=== PATIENT | male | born 1970 | race Caucasian/White ===

== ENCOUNTER 2022-01-06 07:31 | Emergency (ER) | payer OTHER, SELFPAY ==
--- NOTE | ~2022-01-06 | CT_ITS ---
EXAMINATION: CT abdomen pelvis w con INDICATION: Right flank pain TECHNIQUE: Computed tomographic images of the abdomen and pelvis were obtained after the administrati on of 100 cc of Omnipaque 350 intravenous contrast. The dose-length product (DLP) was 608.71 mGy-cm. Automated exposure control and iterative reconstruction technique were employed. COMPARISON: None available FINDINGS: Minimal dependent atelectasis is present in the lung bases. The heart size is normal. The l iver, spleen, pancreas, gallbladder, and adrenal glands are normal. The left kidney is unremarkable. Cysts of the right kidney measure up to 1.4 cm. There is a 4 mm stone at the right ureteropelvic junc tion which causes mild right hydronephrosis. No pathologically enlarged abdominal or pelvic lymph nod es are identified. There is no free intraperitoneal gas or evidence of bowel obstruction. The appendi x is normal. There is mild lumbar spondylosis. There is a small fat-containing umbilical hernia. IMPRESSION: 1. 4 mm stone at the right ureteropelvic junction causing mild hydronephrosis. Reviewed, dictated and finalized at location A. [facility]
--- NOTE | ~2022-01-06 | XR_ITS ---
EXAMINATION: XR abdomen/kub 1V INDICATION: Right-sided kidney stone TECHNIQUE: Supine views of the abdomen were obtained on 2 radiographs. COMPARISON: None FINDINGS: Contrast from earlier CT partially opacified the urinary tract. The known right ureteropelv ic junction stone is obscured by contrast material. There is mild right hydronephrosis The bowel gas pattern is normal. The visualized lung bases are clear. IMPRESSION: 1. Known right ureteropelvic junction stone obscured by contrast material. Mild right hydronephrosis. Reviewed, dictated and finalized at location A. SC[facility]ER
[2022-01-06 07:39] VITALS: BP 180/93; PULSE 59; RESP 18; TEMP 36.7; O2SAT 99
--- NOTE | 2022-01-06 07:55 | ED.BACK ---
HPI - Back Pain/Injury General Chief Complaint: Back Pain/Injury Stated Complaint: Back pain Time Seen by Provider: 01/06/22 07:54 Source: patient and family Mode of arrival: ambulatory Limitations: no limitations History of Present Illness HPI Narrative: Patient is a 51-year-old male with no previous medical history presenting to the emergency department for evaluation of right-sided flank pain. Patient states pain began this morning while he was getting changed for work. Patient states pain was severe, sharp in nature without radiation to the abdomen, pelvic pain, penile pain. Denies testicular pain or swelling. Patient denies fever or chills. He does report a few episodes of emesis this morning in association with the pain. Patient denies history of nephrolithiasis. Patient states that pain has now abruptly resolved. Denies any current pain. Patient denies any recent fall or injury, but at bedside states that he has been complaining of intermittent right-sided back pain over the past week. Patient has not seen a doctor reliably in many years. Has no formal medical diagnoses. Related Data Allergies Allergy/AdvReac Type Severity Reaction Status Date / Time No Known Allergies Allergy Verified 01/06/22 07:44 Review of Systems Review of Systems: CONSTITUTIONAL: Denies fever, chills, or sweats. EYES: Denies visual changes, redness, or discharge. ENT: Denies rhinorrhea, congestion, sore throat, or otalgia. CARDIOVASCULAR: Denies chest pain, palpitations, or edema. RESPIRATORY: Denies cough or dyspnea. GASTROINTESTINAL: Denies abdominal pain reports right flank pain, nausea and vomiting GENITOURINARY: Denies dysuria or hematuria. SKIN: Denies rash or itching. MUSCULOSKELETAL: Denies back pain, joint pain, or myalgia. NEUROLOGIC: Denies headache, numbness, or weakness. [facility] Social History Social History (Updated 01/06/22 @ 08:29 by Diana Lopes MD) Smoking status: Current every day smoker Alcohol intake: never Substance use: never Living arrangements: with family Exam Narrative: GENERAL: Awake, alert, conversant HEAD: Normocephalic, atraumatic. EYES: PERRLA and EOMI. ENT: Nares clear, no rhinorrhea or epistaxis. Mucous membranes moist. NECK: Supple. CHEST: No respiratory distress, breathing even and non labored HEART: Regular rate, sinus rhythm ABDOMEN:Non distended, non tender, no flank tenderness bilaterally on exam EXTREMITIES: Normal range of motion. No edema. SKIN: Warm, dry, no rash. NEURO:No focal deficits. Alert and oriented x3 Course Vital Signs Vital signs: Vital Signs Temperature 36.7 C 01/06/22 07:39 Pulse Rate 59 L 01/06/22 07:39 Respiratory Rate 18 01/06/22 07:39 Blood Pressure 180/93 H 01/06/22 07:39 Pulse Oximetry 99 01/06/22 07:39 Temperature 36.7 C 01/06/22 07:39 Pulse Rate 59 L 01/06/22 07:39 Respiratory Rate 18 01/06/22 07:39 Blood Pressure 180/93 H 01/06/22 07:39 Pulse Oximetry 99 01/06/22 07:39 MDM - Back Pain/Injury MDM Narrative Medical decision making narrative: Patient presenting for evaluation of right flank pain, currently resolved at the time of assessment. Obese is intact, vital signs are notable for hypertension. Laboratory results without evidence of urinary tract infection. No leukocytosis or acute kidney injury. Patient with CT scan with 4 mm right UPJ stone. Will obtain KUB renal stone protocol, patient be discharged home with urology follow-up, urine strainer, pain medication, antiemetic. Advised patient regarding his elevated BP; he states this is because he is in pain. I explained the importance of seeing a PCP regarding this as he will require follow up and repeat measurements. We discussed the importance of primary care physician and health maintenance. Pt then discharged. Differential Diagnosis Differential diagnosis: Likely renal colic, pyelonephritis, AAA and discitis Medical Records Attestation: I reviewed the [facility]
--- NOTE | 2022-01-06 08:00 | PC.NURSE ---
Pt attempted to give urine sample with no success
[2022-01-06 08:11] LABS: Basophils Absolute Auto 0.1 K/mm3 (0.0-0.1); Basophils Percent Auto 0.9 % (0.2-1.2); Eosinophils Absolute Auto 0.1 K/mm3 (0-0.3); Eosinophils Percent Auto 2.5 % (0-4.4); Hematocrit 48.1 % (42.0-52.0); Immature Granulocyte Absolute 0.01 K/mm3 (0.00-0.031); Immature Granulocyte Percent A 0.2 % (0-0.5); Lymphocytes Absolute Auto 1.13 K/mm3 (0.9-3.2); Lymphocytes Percent Auto 20.4 % (18.3-44.2); Mean Corpuscular HGB Conc 33.3 g/dl (32-36); Mean Corpuscular Hemoglobin 31.5 pg (26-34); Mean Corpuscular Volume 94.7 fl (80-100); Mean Platelet Volume 9.6 fl (7.4-10.4); Monocytes Absolute Auto 0.4 K/mm3 (0.1-0.6); Monocytes Percent Auto 7.2 % (2.6-8.5); Neutrophils Absolute Auto 3.8 K/mm3 (1.3-6.7); Neutrophils Percent Auto 68.8 % (45.5-73.1); Platelet Count Result 279 k/mm3 (150-375); Red Blood Count 5.08 M/mm3 (4.6-6.20); Red Cell Distribution Width 13.2 % (11.5-14.5); White Blood Count 5.5 K/mm3 (4.5-10.0)
[2022-01-06 08:23] LABS: Alanine Aminotransferase 30 U/L (4-50); Albumin Level 4.6 g/dL (3.5-5.1); Alkaline Phosphatase 64 U/L (38-126); Anion Gap 9 mmol/L (8-16); Aspartate Amino Transferase 27 U/L (17-59); Bilirubin,Total 0.8 mg/dL (0.2-1.3); Blood Urea Nitrogen 13 mg/dL (9-20); Calcium 9.6 mg/dL (8.4-10.2); Carbon Dioxide 29 mmol/L (22-30); Chloride 102 mmol/L (98-107); Estimated CRCL calculation 76 ml/min; Estimated Glomerular Filt Rate > 60; Glucose 136 mg/dL (65-110); Potassium 4.2 mmol/L (3.4-5.0); Sodium 140 mmol/L (137-145)
[2022-01-06] MEDS: SODIUM CHLORIDE 0.9% IV 1,000 ML 999 ML IV CONT (08:54)
[2022-01-06] MEDS: ONDANSETRON INJ 4 MG/2 ML VIAL IV PUSH (08:54)
[2022-01-06 09:11] LABS: Add Urine Microscopic? YES; Appearance Urine Clear (Clear); Bilirubin Urine Negative (Negative); Blood Urine 3+ (Negative); Color Urine Straw (Yellow); Glucose Urine UA Negative (Negative); Ketones Urine Negative (Negative); Leukocyte Esterase Ur Negative LEU/UL (Negative); Mucus Urine Rare /lpf; Nitrate Urine Negative (Negative); Protein Urine Negative (Negative); RBC Urine 51-75 /hpf (0-2); Urobilinogen Urine Negative mg/dL (<2.0); WBC Urine 0-3 /hpf
[2022-01-06 10:09] VITALS: BP 155/87; PULSE 54; RESP 18; O2SAT 99
== END 2022-01-06 10:11 | disposition home or self-care (01) ==
PROVIDERS: Emergency Provider Emergency Medicine
DX: N13.2 Hydronephrosis with renal and ureteral calculous obstruction (principal); F17.200 Nicotine dependence, unspecified, uncomplicated
CPT/HCPCS: 36415; 74018; 74177; 80053; 81001; 85025; 96361; 96374; 99284; J2405; J7030; Q9967